=== PATIENT | male | born 1985 | race Caucasian/White ===

== ENCOUNTER 2017-07-24 07:32 | Outpatient (CLI) | payer OTHER ==
--- NOTE | 2017-07-24 08:33 | RAD ---
TWO VIEWS OF THE CHEST: COMPARISON: None. HISTORY: Right testicular mass. Preoperative radiograph. FINDINGS: Two views of the chest show normal sized cardiomediastinal silhouette. There is no evidence of consol idation, mass, or pleural effusion. The bones are unremarkable. IMPRESSION: No evidence of acute cardiopulmonary disease. POS: [facility]
--- NOTE | 2017-07-24 08:35 | CT ---
CT ABDOMEN AND PELVIS WITH AND WITHOUT IV CONTRAST: HISTORY: Right testicular mass. FINDINGS: At the right posterior lung base, a 0.6 cm nodule shows hyperdensity on the precontrast images consis tent with calcification, indicative of a benign process. Small cysts are scattered throughout the liver. The spleen, kidneys, adrenal glands, and pancreas ar e within normal limits. Nonenlarged lymph nodes are scattered about the retroperitoneum. Urinary bl adder is incompletely distended. The inferiormost images show marked enlargement of the right side of the scrotum, filled with a heter ogeneous predominantly hyperdense mass measuring up to 12.0 cm greatest length. Vascular structures at the right inguinal canal are slightly engorged, although no focal mass is evident. IMPRESSION: Large heterogeneous mass filling the right scrotum. No evidence of metastatic disease. POS: [facility]
[2017-07-24 11:08] LABS: #Eosinphils 0.1 thou/uL (0.0-0.7); #Lymphocytes 1.7 thou/uL (1.20-3.40); #Monocytes 0.6 thou/uL (0.11-0.59); #Neutrophils 2.6 thou/uL (1.40-6.50); %Basophils 0.8 % (0.0-1.0); %Eosinophils 1.8 % (0.0-10.0); %Monocytes 11.3 % (0.0-10.0); %Neutrophils 52.1 % (42.0-75.0); Hemoglobin 17.5 g/dL (14.0-18.0); Mean Corpuscular Hemoglobin 30.1 pg (27.0-31.0); Mean Corpuscular Volume 91.3 fl (80.0-94.0); Mean Platelet Volume 7.6 fL (7.4-10.4); Platelet Count 198 thou/uL (130-400); RBC Distribution Width 11.3 % (11.5-14.5); Red Blood Cell (RBC) Count 5.81 mill/uL (4.70-6.10); White Blood Cell (WBC) Count 5.1 thou/uL (4.8-10.8)
[2017-07-24 11:25] LABS: Anion Gap 14 mmol/L (10-20); BUN (Urea Nitrogen) 9 mg/dL (8.9-20.6); Calc. Creatinine Clearance 0 mL/min (70-130); Calcium 9.5 mg/dL (7.8-10.44); Carbon Dioxide 28 mmol/L (22-29); Chloride 101 mmol/L (98-107); Estimated GFR-MDRD 80; Glucose 110 mg/dL (70-105); LDH 979 U/L (125-220); Sodium 138 mmol/L (136-145)
[2017-07-24] MEDS ORDERED: Iopamidol 370 76% 100 ML VIAL ONE (15:44)
== END 2017-07-24 07:33 | disposition home or self-care (01) ==
LOC: CT 07:32
PROVIDERS: ATTEND Urology
DX: N50.89 Other specified disorders of the male genital organs (principal)
CPT/HCPCS: 71046; 74178; 80048; 82105; 83615; 84702; 85025

== ENCOUNTER 2017-07-25 09:12 | Day surgery (SDC) | payer OTHER ==
[2017-07-24 09:41] VITALS: BMI 26.3
[2017-07-25] MEDS ORDERED: Fentanyl 100 MCG/2 ML VIAL ONE (09:30)
[2017-07-25] MEDS ORDERED: HYDROmorphone 0.5 MG/0.5 ML SYRINGE ONE (09:30)
[2017-07-25] MEDS ORDERED: CEFAZOLIN 1 GM, Syringe 2.5 ML in Sterile Water 7.5 ML SLOW IVP SCH (10:00)
[2017-07-25] MEDS ORDERED: Midazolam HCl 2 mg/2 ml Vial ONE (10:19)
[2017-07-25] MEDS ORDERED: Bupivacaine 0.25% HCL 30 ML VIAL ONE (10:38)
[2017-07-25] MEDS ORDERED: Lidocaine 1% (PF) 30 ML VIAL ONE (10:38)
[2017-07-25] MEDS ORDERED: HYDROcodone/Acetaminophen 5/325 mg Tablet ONE (13:09)
--- NOTE | 2017-07-25 19:21 | OP ---
DATE OF SERVICE: 07/25/2017 PREOPERATIVE DIAGNOSIS: Right testicular mass. POSTOPERATIVE DIAGNOSIS: Right testicular mass. PROCEDURE: Right radical orchiectomy. SURGEON: Patsy Jay MD ANESTHESIA: General with mask airway. SPECIMENS: Testicle and cord. COMPLICATIONS: None. BLOOD LOSS: Minimal. FINDINGS: Resection of a very large testicular tumor. Significant vascularity and surrounding vessels noted at the level of the cord at the inguinal canal and very large tumor replacing the entire testicle noted just from gross examination. INDICATIONS: The patient is a 31-year-old male who was seen urgently in the office after his PCP noted a concern for a testicular mass. Ultrasound confirmed this and we discussed the likelihood of cancer. He got a CT of the abdomen and pelvis as well as a chest x-ray and tumor markers. 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 He was set up for urgent resection at the same time. TECHNIQUE: The patient was brought into the room by Anesthesia and kept in supine position. After given general anesthetic, laid supine and prepped and draped in sterile fashion. Using an inguinal approach, an incision was made and carried down to beyond Emma's until inguinal fascia. The external ring was noted and the cord complex was then elevated and isolated with a Renea and then with some difficulty based on purely the size of the tumor, the tumor was then pushed from the scrotum and into the wound itself. An incision was extended a little bit medial to aid in this. Once the testicle was delivered through the wound, the gubernaculum was released with cautery. A few vessels were ligated given their size as the testicle was freed from the gubernaculum and then elevated isolating just the cord itself. As we discussed preoperatively, I would attempt not to open the inguinal canal to aid in his recovery process, so I skeletonized the cord such that it would be free to go in and out of the canal and with gentle pressure, tugged on the cord itself and placed four suture ligation stitches with 2-0 silk. Hemostasis was ensured prior to releasing the sutures themselves and then the cord itself was pushed anterior and lateral towards the internal ring. At this point, hemostasis was insured and multiple syringes of irrigation were used. Then, Emma's was reapproximated with 3-0 Vicryl and subcutaneous tissue was reapproximated with 3 -0 Vicryl and then a cutaneous tissue was reapproximated in subcuticular fashion using 4-0 Monocryl. Steri-Strips and a sterile dressing were applied. The patient was then awakened and transferred to the PACU in stable condition. YOMI
== END 2017-07-25 13:50 | disposition home or self-care (01) ==
LOC: SDC 09:12
PROVIDERS: ATTEND Urology
PROC: 0VT90ZZ Resection of Right Testis, Open Approach (ICD-10-PCS; principal; 2017-07-25)
DX: C62.91 Malignant neoplasm of right testis, unspecified whether descended or undescended (principal); R35.0 Frequency of micturition; F17.290 Nicotine dependence, other tobacco product, uncomplicated; Z98.818 Other dental procedure status
CPT/HCPCS: 88309; 88341; 88342; A4216; J0690; J1170; J2001; J2250; J3010; S0020

== ENCOUNTER 2017-08-24 08:11 | Outpatient (CLI) | payer OTHER ==
--- NOTE | 2017-09-07 09:32 | PFT ---
PATIENT HISTORY: HEIGHT: WEIGHT: SMOKER: HOW LONG: PACKS PER DAY PRODUCTIVE COUGH: [ LUNG DISEASE: PHYSICIAN INTERPRETATION FINAL REPORT:Cupola Worker comments: Cupola Worker The patient had good effort cooperation FVC 4.90. (97%), FEV1 3.96 (97%), FEV1/FVC 0.81. TLC 5.58 (82%), RV 1.22 (70%). Diffusion 27.01 (86%). The FEV1 and FVC are perfectly normal. There is no obstructive profile suggested by the ratio. The flow volume loops are also normal suggesting no element of obstructive airflow limitation. The total lung capacity is at the lower limits of normal. The residual volume is minimally reduced. The diffusion capacity falls within the normal range. IMPRESSION: Overall, these pulmonary function studies are normal. No priors for comparison. Cupola Worker: SHAHID Hr Clerk: SHAHID CELAYA
== END 2017-08-24 08:12 | disposition home or self-care (01) ==
LOC: CP 08:11
PROVIDERS: ATTEND Internal Medicine Hematology & Oncology
DX: C62.11 Malignant neoplasm of descended right testis (principal); Z79.899 Other long term (current) drug therapy
CPT/HCPCS: 94060; 94727; 94729

== ENCOUNTER 2017-11-03 11:24 | Day surgery (SDC) | payer OTHER ==
[2017-11-02 11:37] VITALS: BMI 23.6
[2017-11-03] MEDS ORDERED: CEFAZOLIN/Water 2 GM/20 ML SYRINGE ONE (12:27)
[2017-11-03] MEDS ORDERED: Lidocaine 2% 10 ML INJ ONE (13:54)
[2017-11-03] MEDS ORDERED: Bupivacaine/Epinephrine 0.25% 30 ML VIAL ONE (13:54)
[2017-11-03] MEDS ORDERED: Fentanyl 100 MCG/2 ML VIAL ONE (13:55)
--- NOTE | 2017-11-03 15:48 | RAD ---
RADIOGRAPH CHEST 1 VIEW: HISTORY: Status post MediPort placement in a 32-year-old male. FINDINGS: There are no air space densities, pulmonary edema, pneumothorax, or cardiomegaly. The lateral costop hrenic angles are sharp. Compared to 07/24/17, there is now a new right IJ vascular access port marly ter with distal tip overlying the SVC. IMPRESSION: 1. No acute cardiopulmonary findings. 2. Right internal jugular implantable vascular access port placement without pneumothorax. valentina [] POS: [facility]
[2017-11-03] MEDS ORDERED: PROPOFOL 200 MG/20 ML VIAL ONE (15:58)
--- NOTE | 2017-11-06 12:45 | OP ---
DATE OF PROCEDURE: 11/03/2017 PREOPERATIVE DIAGNOSIS: Testicular cancer. POSTOPERATIVE DIAGNOSIS: Testicular cancer. PROCEDURE: Tunneled central line subcutaneous port (MediPort, CT injectable). SURGEON: Mason Shields M.D. ANESTHESIA: General. ESTIMATED BLOOD LOSS: Minimal. COMPLICATIONS: None. SPECIMEN: None. FINDINGS: Tip of the catheter is at the atriocaval junction. PROCEDURE IN TECHNIQUE: The patient was taken to the operating room and placed supine on the table. After general anesthetic was obtained, bilateral neck and chest were shaved, prepped, and draped in a sterile fashion. Local anesthetic infiltrated over the right internal jugular vein. Intrajugular vein cannulated using a 22-gauge finder needle followed by a Seldinger needle. Wire was passed into the superior vena cava under fluoroscopic guidance. A small ralph was made at the wire at its entranc e site. A separate 3-cm incision made in right upper chest. Subcutaneous pocket made below the lowe r incision. Tubing for the MediPort tunneled from the inferior to superior incision. Introducer she ath was placed over the wire into the superior vena cava under fluoroscopic guidance. The dilator an d wire removed and the catheter shredded into the sheath as the sheath is peeled away. The tip of ca theter is at the atriocaval junction. MediPort tubing cut to fit the MediPort at the lower incision, connected to the MediPort, the MediPort sewn to the chest wall and subcutaneous pocket using Prolene . MediPort flushes and draws blood without difficulties. It is flushed with a heparin flush. All i ncisions were irrigated and closed using 3-0 Vicryl, 4-0 Monocryl, and Dermabond. The patient went t o recovery in stable condition. All instrument counts, needle counts, lap counts were correct.
== END 2017-11-03 15:44 | disposition home or self-care (01) ==
LOC: SDC 11:24
PROVIDERS: ATTEND Surgery
PROC: 02HV33Z Insertion of Infusion Device into Superior Vena Cava, Percutaneous Approach (ICD-10-PCS; principal; 2017-11-03)
DX: C62.11 Malignant neoplasm of descended right testis (principal); Z79.899 Other long term (current) drug therapy
CPT/HCPCS: 71045; C1788; J1642; J2704; J3010

== ENCOUNTER 2017-12-11 09:28 | Outpatient (CLI) | payer OTHER ==
--- NOTE | 2017-12-11 11:44 | CT ---
CT ANGIOGRAM OF THE CHEST: DATE: 12/11/17. COMPARISON: None. HISTORY: History of testicular cancer, shortness of breath, evaluate for pulmonary embolism. TECHNIQUE: Serial axial CT imaging is obtained at 2.5 mm intervals from the thoracic inlet to the upper abdomen with IV contrast using a CT angiogram protocol. Coronal and oblique sagittal 3d reformatted imaging obtained. FINDINGS: Right-sided Port-A-Cath in place, distal tip in the region of the cavoatrial junction. No lymphadenopathy is seen in the axillary region on either side. Subcentimeter right paratracheal p revascular and AP window nodes noted. No enlarged hilar or mediastinal nodes. Imaged upper abdomen is grossly unremarkable. No pleural, pericardial, or mediastinal fluid is seen. There is good opacification of the pulmonary arterial vasculature. There is no filling defect seen w ithin the main pulmonary trunk or other main pulmonary artery. On axial image 62 and oblique coronal image 30, there is a questionable distal subsegmental single pulmonary embolism within the left lowe r lobe. There is a nodule in the right lower lobe posteriorly which measures in the 7-8 mm in transverse dime nsion, not significantly changed when compared to the 07/24/17 CT of the abdomen and pelvis. It demon strates central increased density. A stable granuloma is favored. Given the patient's clinical hist ory, followup imaging may be beneficial. There is no worrisome lytic or blastic bone lesion. IMPRESSION: 1. Questionable distal single left lower lobe subsegmental pulmonary embolism. 2. Probable stable right lower lobe granuloma. Results called to Dr. Smart 11:25 a.m. 12/11/17. CODE CR POS: [facility]
[2017-12-11] MEDS ORDERED: Iopamidol 370 76% 100 ML VIAL ONE (14:52)
== END 2017-12-11 09:29 | disposition home or self-care (01) ==
LOC: CT 09:28
PROVIDERS: ATTEND Internal Medicine Hematology & Oncology
DX: C62.11 Malignant neoplasm of descended right testis (principal); I26.99 Other pulmonary embolism without acute cor pulmonale; D70.1 Agranulocytosis secondary to cancer chemotherapy; R06.02 Shortness of breath
CPT/HCPCS: 71275

== ENCOUNTER 2018-01-03 08:34 | Outpatient (CLI) | payer OTHER ==
--- NOTE | 2018-01-03 11:50 | CT ---
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 The patient has undergone chemotherapy. The p atient has undergone right orchiectomy. COMPARISON: 07/24/17. CORRELATION: CT angiogram of the chest 12/11/17. TECHNIQUE: An abdomen and pelvis CT are performed with IV contrast. The patient was also administered enteric c ontrast. Coronal reformatted images are submitted for interpretation. FINDINGS: ABDOMEN CT: Approximately 1 cm nodule in the right lower lobe, unchanged from the recent CT angiogram of the ches t. Additional patchy interstitial opacities are noted. Heart size is normal. No pericardial effusi on. The descending thoracic aorta and abdominal aorta have a normal caliber. No periaortic fat stra nding. There are nonenlarged periaortic lymph nodes which are similar to the previous examination. No evidence of pericaval or aortocaval lymphadenopathy. No retroperitoneal mass, lymphadenopathy, or hematoma. Intra- and extrahepatic portal vein is patent. Unremarkable gallbladder. Hypodensities in the liver are again noted. The majority of these hypodensities are too small to kelvin racterize. Stable slightly complex cyst in the left hepatic lobe measuring 1.6 cm. Spleen, pancreas, and adrenal glands are unremarkable. No gastrohepatic, retrocrural, or periportal lymphadenopathy. Symmetric enhancement of the kidneys. Bilaterally, no obstructive uropathy. Gastric mucosa, duodenum, and multiple normal-caliber small bowel loops are noted. The ileocecal milly ction is normal. Normal-caliber appendix. Unremarkable colon. There is scattered contrast and feca l material. Occasional diverticulum. No diverticulitis. No mesenteric mass, lymphadenopathy, free air, or free fluid. PELVIC CT: The urinary bladder is unremarkable. No pelvic mass, lymphadenopathy, free air or free fluid. There are no lytic or blastic lesions in the osseous structures. No evidence of inguinal lymphadenopathy. IMPRESSION: 1. Approximately 1 cm nodule in the right lower lobe. This nodule was appreciated on the previous a bdomen and pelvic CT and has not significantly changed in approximately 5 months. 2. No evidence of a metastasis within the abdomen or pelvis. POS: [facility]
[2018-01-03] MEDS ORDERED: Iopamidol 370 76% 100 ML VIAL ONE (12:17)
== END 2018-01-03 08:35 | disposition home or self-care (01) ==
LOC: SCSCT 08:34
PROVIDERS: ATTEND Internal Medicine Hematology & Oncology
DX: C62.11 Malignant neoplasm of descended right testis (principal); R91.1 Solitary pulmonary nodule
CPT/HCPCS: 74177

== ENCOUNTER 2018-06-19 07:12 | Outpatient (CLI) | payer OTHER ==
[2018-06-19] MEDS ORDERED: Iopamidol 370 76% 100 ML VIAL ONE (09:00)
--- NOTE | 2018-06-19 10:37 | CT ---
CT ABDOMEN AND PELVIS WITH CONTRAST: HISTORY: Testicular cancer. COMPARISON: 01/03/2018 TECHNIQUE: Multiple contiguous axial images were obtained in a CT of the abdomen and pelvis with contrast. Cont rast was administered p.o. Coronal reformats were performed. FINDINGS: There are scattered stable hypodensities in the liver, measuring up to 1.4 cm in size, which likely r epresents small cysts. The gallbladder, kidneys, adrenal glands, spleen, and pancreas are unremarkab le. No free air, free fluid, or stranding changes are seen in the abdomen or pelvis. The large and small bowel are unremarkable. The appendix is normal. No abdominal or pelvic lymphadenopathy is seen. The abdominal wall soft tissues and bones are unremarkable. There is an area of nodularity in the ri ght lung base, measuring 7 mm in size, which is nonspecific, but could represent an area of scarring. IMPRESSION: 1. No evidence of intraabdominal/pelvic metastatic disease. 2. Stable area of nodularity in the right lung base. POS: [facility]
--- NOTE | 2018-06-19 12:14 | RAD ---
CHEST TWO VIEWS: Comparison: 07-24-17 History: Testicular cancer. FINDINGS: Normal cardiac silhouette. The pulmonary vessels and hilum are normal. Costophrenic angles are clear. No mass. No consolidation. No pneumothorax or osseous abnormalities. IMPRESSION: No acute cardiopulmonary process. POS: [facility]
== END 2018-06-19 07:13 | disposition home or self-care (01) ==
LOC: SCSCT 07:12
PROVIDERS: ATTEND Internal Medicine Hematology & Oncology
DX: C62.11 Malignant neoplasm of descended right testis (principal); R91.1 Solitary pulmonary nodule
CPT/HCPCS: 71046; 74177

== ENCOUNTER 2019-03-25 07:41 | Outpatient (CLI) | payer OTHER ==
--- NOTE | 2019-03-25 08:49 | CT ---
CT ABDOMEN AND PELVIS WITH IV CONTRAST 03/25/2019 CLINICAL INFORMATION: Malignant neoplasm right testicle. A granulocytosis secondary to chemotherapy. Follow-up evaluation. COMPARISON: 06/19/2018 Technique: Multiple contiguous axial CT images are obtained through the abdomen and pelvis with IV contrast. Cor onal reformatted images are provided. FINDINGS: Lower Chest: Previously described nodule right lung base now demonstrates calcification suggesting a calcified granuloma. No new pulmonary nodule is seen in either lung base. Vessels: Abdominal aorta is normal in caliber without some aortic dissection. Abdomen: Portal vein:Patent Gallbladder: Within normal limits for CT imaging. Liver: There are multiple stable too small to characterize hypodense lesions scattered in each lobe o f the liver with a stable larger 1.6 cm hypodense lesion in the lateral segment left hepatic lobe Spleen: within normal limits. Pancreas: within normal limits. Adrenals: within normal limits. Kidneys: within normal limits. Bowel: Normal caliber. Appendix: The appendix is visualized and normal in caliber. Peritoneum: No ascites or free air; no fluid collection. Mesentery and Retroperitoneum: No enlarged mesenteric or retroperitoneal lymph nodes. Abdominal Wall: within normal limits. Pelvis: Reproductive Organs: No pelvic masses. Pelvis within normal limits. Bladder: within normal limits. Bones: No suspicious lytic or sclerotic osseous lesions are identified. IMPRESSION: 1. No CT evidence of metastatic disease. 2. Stable hypodense lesions scattered within each lobe of the liver majority of which are too small t o further characterize. However these hypodense lesions likely represent hepatic cysts.
--- NOTE | 2019-03-25 10:38 | RAD ---
CHEST 2 VIEWS: DATE: 03/25/19 HISTORY: C62.11 D70.1 Malignant neoplasm of descended right testis, agranulocytosis, patient on chemotherapy. COMPARISON: 06/19/18. FINDINGS: Heart size is normal. The lungs are clear of acute process. IMPRESSION: No acute intrathoracic disease. Stable from prior study. POS: [facility]
== END 2019-03-25 07:42 | disposition home or self-care (01) ==
LOC: SCSCT 07:41
PROVIDERS: ATTEND Internal Medicine Hematology & Oncology
DX: C62.11 Malignant neoplasm of descended right testis (principal); D70.1 Agranulocytosis secondary to cancer chemotherapy; K76.9 Liver disease, unspecified
CPT/HCPCS: 71046; 74177

== ENCOUNTER 2020-03-26 09:26 | Outpatient (CLI) | payer OTHER ==
--- NOTE | 2020-03-26 09:51 | RAD ---
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 COMPARISON: 03/25/2019. FINDINGS: The heart size is normal. The lungs are well expanded and clear. The bony thorax is normal. IMPRESSION: Normal exam.
--- NOTE | 2020-03-26 10:59 | CT ---
CT Abdomen Pelvis W Con History: Stage II nonseminomatous germ cell tumor; stage II embryonal carcinoma Comparison: CT abdomen and pelvis March 25, 2019 Findings: Nodule in the right lung base is similar with few internal calcification suggesting a calci fied granuloma. Hepatic cysts are similar. No new suspicious hepatic mass. The spleen, pancreas, adrenal glands are unremarkable. The aortic contour is nonaneurysmal. No dilated loops of large or small bowel. The appendix is visualized and is normal. No retroperitoneal periaortic adenopathy. Aortoiliac contour is normal. No suspicious osteolytic or osteoblastic lesions. Impression: No evidence for metastatic disease within the abdomen or pelvis.
== END 2020-03-26 09:27 | disposition home or self-care (01) ==
LOC: SCSCT 09:26
PROVIDERS: ATTEND Internal Medicine Hematology & Oncology
DX: C62.11 Malignant neoplasm of descended right testis (principal); I26.99 Other pulmonary embolism without acute cor pulmonale
CPT/HCPCS: 71046; 74177